=== PATIENT | male | born 1975 | race American Indian/Alaskan Native ===

== ENCOUNTER 2017-02-16 18:51 | Observation (INO) | payer OTHER ==
[2017-02-16 18:53] VITALS: BMI 31.1
--- NOTE | 2017-02-16 20:37 | ED PDOC ---
HPI:STROKE - Time Time: 19:30 - Historian Historian: Patient - Chief Complaint Chief Complaint: Confusion - Notes: Notes:: Harshal Hammond is a 41 year old male, with a previous medical history of strokes , brain tumor, hypercholesterolemia, diabetes and hypertension, who presents to the ED with complaints of intermittent states of confusion associated with a mild headache, blurred vision, blanking out and difficulty finding words ongoing for the past 2 weeks. Patient reports today's episode lasting longer which prompted ED visit. Patient denies any head trauma, falls or focal weakness. PMD: Dr. Judd NIHSS Stroke Scale - Date/Time Evaluation Performed Date Performed: 02/16/17 Time Performed: 19:30 When Was NIHSS Performed: Baseline - How Severe is the Stroke Level of Consciousness: 0=Alert LOC to Questions: 0=Both comments correct LOC to commands: 0=Obeys both correctly Best Gaze: 0=Normal Visual: 0=No visual loss Facial: 0=Normal Motor Arm - Left: 0=No drift Motor Arm - Right: 0=No drift Motor Leg - Left: 0=No drift Motor Leg - Right: 0=No drift Limb Ataxia: 0=Absent Sensory: 0=Normal Best Language: 0=No aphasia Dysarthia: 0=Normal articulation Extinction & Inattention (Neglect): 0=Normal, no object Score: 0 rTPA Inclusion/Exclusion - Refusal of Treatment Patient Refused Treatment: No - Inclusion Criteria for Altepase Patient is 18 years or Older: Yes The Clinical Diagnosis of Ischemic Stroke That is Causing a Potentially Disabling Neurological Deficit: No Time of Onset is Well Established to be Less Than 270 Minute Before Treatment Would Begin: No Risk/Benefit Discussed With Patient/Family Member Present: No Past Medical History Reviewed: Historical Data, Nursing Documentation, Vital Signs Vital Signs: Last Vital Signs Temp 97.9 F 02/16/17 19:01 Pulse 110 H 02/16/17 19:01 Resp 18 02/16/17 19:01 BP 139/86 02/16/17 19:01 Pulse Ox 99 02/16/17 19:01 - Medical History PMH: Asthma, Diabetes, HTN, Hypercholesterolemia Denies: HIV, Chronic Kidney Disease - Surgical History Other surgeries: craniectomy - Family History Family History: States: St[place], [place] - Home Medications Home Medications: Ambulatory Orders Medication Instructions Recorded Glimepiride [amaRYL] 2 mg PO DAILY 02/27/15 Metformin Hydrochloride [Metformin] 500 mg PO TID 02/27/15 Aspirin [Aspirin Chewable] 81 mg PO DAILY #0 chew 03/03/15 Atorvastatin [Lipitor] 20 mg PO DAILY #0 tab 03/03/15 Lisinopril [Zestril] 20 mg PO DAILY #0 tab 03/03/15 - Allergies Allergies/Adverse Reactions: Allergies Allergy/AdvReac Type Severity Reaction Status Date / Time No Known Allergies Allergy Verified 02/16/17 19:01 Review of Systems ROS Statement: Except As Marked, All Systems Reviewed And Found Negative Eyes: Positive for: Vision Change (blurred ) Neurological: Positive for: Confusion, Headache. Negative for: Weakness Physical Exam - Reviewed Nursing Documentation Reviewed: Yes Vital Signs Reviewed: Yes - Physical Exam Appears: Positive for: Well, Non-toxic, No Acute Distress Head Exam: Positive for: ATRAUMATIC, NORMAL INSPECTION, NORMOCEPHALIC Skin: Positive for: Normal Color, Warm, Dry Eye Exam: Positive for: EOMI, Normal appearance, PERRL ENT: Positive for: Normal ENT Inspection Neck: Positive for: Normal, Painless ROM Cardiovascular/Chest: Positive for: Regular Rate, Rhythm Respiratory: Positive for: CNT, Normal Breath Sounds Gastrointestinal/Abdominal: Positive for: Normal Exam, Bowel Sounds, Soft Back: Positive for: Normal Inspection Extremity: Positive for: Normal ROM Neurologic/Psych: Positive for: Alert, net application architect II-XII (intact ), Oriented, Cerebellar Tests (normal ). Negative for: Motor/Sensory Deficits - Laboratory Results Result Diagrams: 02/17/17 05:30 02/17/17 05:30 - ECG ECG: Positive for: Interpreted By Me ECG Rhythm: Positive for: Normal ST Segment, Sinus Rhythm, Sinus Tachycardia O2 Sat by Pulse Oximetry: 99 (RA) Pulse Ox Interpretation: Normal Medical Decision Making Medical Decision Making: Initial Impression: episodic Altered Mental Status. differentials include TIA, CVA, electrolyte abnormality, dehydration and metabolic encephalopathy Initial Plan: * blood type and screen * CT head w/o contrast * EKG * labs * alcohol serum * ammonia * urine drug screen * magnesium * phosphorous * Troponin I * partial thromboplastin time * prothrombin time * CXR * accu-check * reevaluation Reviewed previous chart from 02/2015. Pt had very similar presentation and MRI at that time demonstrated acute infarct, tiny microhemorrhages, encephalomalacia. EXAM: CT Head Without Intravenous Contrast CLINICAL HISTORY: 41 years old, male; Pain; Headache; Other: Stanford's weakness blurred vision; Prior surgery; Surgery date: 6+ months; Surgery type: Brain tumor removal 1995; Patient HX: Prior mri CT brain sent; Additional info: Confusion h/o CVA h/o tumor TECHNIQUE: Axial computed tomography images of the head/brain without intravenous contrast. This CT exam was performed using one or more of the following dose reduction techniques: automated exposure control, adjustment of the mA and/or kV according to patient size, and/or use of iterative reconstruction technique. Coronal and sagittal reformatted images were created and reviewed. COMPARISON: CT - HEAD W/O CONTRAST 02/27/2015 10:09:12 PM FINDINGS: Brain: Mild atrophy. No intracranial hemorrhage. Mild encephalomalacia within LEFT occipital parietal region. Mild encephalomalacia within RIGHT cerebellar hemisphere. No mass. No definite edema. Ventricles: No hydrocephalus. Bones/joints: No acute fracture. RIGHT occipital craniectomy. [place] hole. Soft tissues: Unremarkable. Sinuses: Scattered mild mucosal thickening. Mastoid air cells: No mastoid effusion. Orbits: Unremarkable as visualized. IMPRESSION: 1. No definite acute intracranial abnormality. Acute infarction may be CT occult within first 24 hours. If a focal deficit persists, consider followup CT or MRI for further evaluation. 2. Incidental/non-acute findings are described above. Thank you for allowing us to participate in the care of your patient. Dictated and Authenticated by: Roberto Najera MD 02/16/2017 11:10 PM Eastern Time ([place] & [place]) Scribe Attestation: Documented by Sasha Borja, acting as a scribe for Ирина Gonzales MD. Provider Scribe Attestation: All medical record entries made by the Scribe were at my direction and personally dictated by me. I have reviewed the chart and agree that the record accurately reflects my personal performance of the history, physical exam, medical decision making, and the department course for this patient. I have also personally directed, reviewed, and agree with the discharge instructions and disposition. Disposition - Clinical Impression Clinical Impression: Altered awareness, transient Discussed With : William Francis Doctor Will See Patient In The: ED Counseled Patient/Family Regarding: Studies Performed, Diagnosis - Disposition Disposition Time: 20:00 Condition: GUARDED - Pt Status Changed To: Hospital Disposition Of: Inpatient - Admit Certification Admit to Inpatient:: After my assessment, the patient will require hospitalization for at least two midnights. This is because of the severity of symptoms shown, intensity of services needed, and/or the medical risk in this patient being treated as an outpatient. - POA Present On Arrival: None
[2017-02-16 20:40] LABS: BASO # 0.1 K/uL (0.0-0.2); BASO % 0.7 % (0.0-2.0); EOS # 0.2 K/uL (0.0-0.7); EOS % 2.1 % (0.0-4.0); HEMATOCRIT 41.7 % (35.0-51.0); LYMPH # 1.6 K/uL (1.0-4.3); LYMPH % 18.8 % (20.0-40.0); MEAN CELL VOLUME 89.1 fl (80.0-94.0); MEAN CORPUSCULAR HEMOGLOBIN 28.7 pg (27.0-31.0); MEAN CORPUSCULAR HGB CONC 32.2 g/dL (33.0-37.0); MEAN PLATELET VOLUME 9.2 fl (7.2-11.7); MONO # 0.4 K/uL (0.0-0.8); MONO % 4.5 % (0.0-10.0); NEUT # 6.2 K/uL (1.8-7.0); NEUT % 73.9 % (50.0-75.0); RED CELL DISTRIBUTION WIDTH 15.2 % (11.5-14.5); WHITE BLOOD COUNT 8.3 K/uL (4.8-10.8)
[2017-02-16 20:44] LABS: ALB/GLOB RATIO 1.3 (1.0-2.1); ALCOHOL SERUM < 10 mg/dl (0-10); ALKALINE PHOSPHATASE 57 U/L (38-126); ALT/SGPT 28 U/L (21-72); AST/SGOT 17 U/L (17-59); BILIRUBIN,TOTAL 0.7 mg/dl (0.2-1.3); BLOOD UREA NITROGEN 13 mg/dl (9-20); CALCIUM 9.8 mg/dL (8.4-10.2); CARBON DIOXIDE 28 mmol/L (22-30); CHLORIDE 103 mmol/L (98-107); GFR AFRICAN-AMERICAN > 60; GLUCOSE,RANDOM 82 mg/dL (75-110); MAGNESIUM 1.9 MG/DL (1.6-2.3); POTASSIUM 4.8 MMOL/L (3.6-5.0); SODIUM 140 mmol/l (132-148); TOTAL PROTEIN 7.7 G/DL (6.3-8.2)
[2017-02-16 20:57] LABS: PARTIAL THROMBOPLASTIN TIME 26.6 Seconds (25.6-37.1)
[2017-02-16 21:56] LABS: RBC URINE 4 /hpf (0-3); URINE BACTERIA FEW (<OCC); URINE BILIRUBIN NEGATIVE (NEGATIVE); URINE BLOOD NEGATIVE (NEGATIVE); URINE COLOR YELLOW (YELLOW); URINE GLUCOSE (UA) 150 mg/dL (Normal); URINE KETONE NEGATIVE (NEGATIVE); URINE LEUKOCYTE ESTERASE NEG Leu/uL (Negative); URINE PROTEIN NEGATIVE (NEGATIVE); WBC URINE 1 /hpf (0-5)
--- NOTE | 2017-02-16 23:10 | CT ---
EXAM: CT Head Without Intravenous Contrast CLINICAL HISTORY: 41 years old, male; Pain; Headache; Other: Stanford's weakness blurred vision; Prior surgery; Surgery date: 6+ months; Surgery type: Brain tumor removal 1995; Patient HX: Prior mri CT brain sent; Additional info: Confusion h/o CVA h/o tumor TECHNIQUE: Axial computed tomography images of the head/brain without intravenous contrast. This CT exam was performed using one or more of the following dose reduction techniques: automated exposure control, adjustment of the mA and/or kV according to patient size, and/or use of iterative reconstruction technique. Coronal and sagittal reformatted images were created and reviewed. COMPARISON: CT - HEAD W/O CONTRAST 02/27/2015 10:09:12 PM FINDINGS: Brain: Mild atrophy. No intracranial hemorrhage. Mild encephalomalacia within LEFT occipital parietal region. Mild encephalomalacia within RIGHT cerebellar hemisphere. No mass. No definite edema. Ventricles: No hydrocephalus. Bones/joints: No acute fracture. RIGHT occipital craniectomy. [place] hole. Soft tissues: Unremarkable. Sinuses: Scattered mild mucosal thickening. Mastoid air cells: No mastoid effusion. Orbits: Unremarkable as visualized. IMPRESSION: 1. No definite acute intracranial abnormality. Acute infarction may be CT occult within first 24 hours. If a focal deficit persists, consider followup CT or MRI for further evaluation. 2. Incidental/non-acute findings are described above.
--- NOTE | 2017-02-16 23:32 | CP.PCM.HP ---
History of Present Illness - History of Present Illness History of Present Illness: CC: TIA symptoms -- speech, confusion HPI: This is a 41 y/o male with MHx significant for HTN, DM2, HLD and prior CVA who comes in with c/o speech difficulty and confusion. He states he was watching TV about 6 PM and vision got blurry. He went to lay down. His mother called to him to wake him up and upon getting up he did not recognize her for a few minutes. He also noted some stuttering when attempting to speak. The mother called 911 and they brought him here. Here he had no symptoms. He denies any CP , SOB. Denies f/c/n/v/d. Denies focal weakness. Denies current visual difficulty. Stated that when he previously had CVA, it presented like this. ROS: 14 systems reviewed, negative other than HPI MHx: HTN, DM2, HLD, prior history of ?brain tumor requiring treatment ~20 years ago SHx: some type of procedure for brain tumor Allergies: NKDA Medications: As per med rec Family Hx: F- CVA, GM- CVA, M- CVA Social Hx: Lives with family, no tobacco, no EtOH Present on Admission - Present on Admission Any Indicators Present on Admission: No Past Patient History - Past Medical History & Family History Past Medical History?: Yes - Past Social History Smoking Status: Never Smoked - CARDIAC Hx Hypercholesterolemia: Yes Hx Hypertension: Yes - PULMONARY Hx Asthma: Yes - NEUROLOGICAL Hx Neurological Disorder: No - HEENT Hx HEENT Problems: No - RENAL Hx Chronic Kidney Disease: No - ENDOCRINE/METABOLIC Hx Endocrine Disorders: Yes Hx Diabetes Mellitus Type 2: Yes - HEMATOLOGICAL/ONCOLOGICAL Hx Human Immunodeficiency Virus (HIV): No - INTEGUMENTARY Hx Dermatological Problems: No - MUSCULOSKELETAL/RHEUMATOLOGICAL Hx Musculoskeletal Disorders: No Hx Falls: No - GASTROINTESTINAL Hx Gastrointestinal Disorders: No - GENITOURINARY/GYNECOLOGICAL Hx Genitourinary Disorders: No - PSYCHIATRIC Hx Psychophysiologic Disorder: No Hx Substance Use: No - SURGICAL HISTORY Hx Surgeries: Yes Other/Comment: brain tumor removed- malignant-1996 - ANESTHESIA Hx Anesthesia: Yes Hx Anesthesia Reactions: No Hx Malignant Hyperthermia: No Meds Allergies/Adverse Reactions: Allergies Allergy/AdvReac Type Severity Reaction Status Date / Time No Known Allergies Allergy Verified 02/16/17 19:01 Physical Exam - Constitutional Appears: No Acute Distress - Head Exam Head Exam: ATRAUMATIC, NORMOCEPHALIC - Eye Exam Eye Exam: EOMI, PERRL - ENT Exam ENT Exam: Mucous Membranes Moist - Neck Exam Neck exam: Positive for: Full Rom - Respiratory Exam Respiratory Exam: Clear to Auscultation Bilateral, NORMAL BREATHING PATTERN - Cardiovascular Exam Cardiovascular Exam: REGULAR RHYTHM, +S1, +S2 - GI/Abdominal Exam GI & Abdominal Exam: Normal Bowel Sounds, Soft - Extremities Exam Extremities exam: Positive for: full ROM, normal inspection - Neurological Exam Neurological exam: Alert, CN II-XII Intact, Oriented x3 Additional comments: no focal weakness - Psychiatric Exam Psychiatric exam: Normal Affect, Normal Mood - Skin Skin Exam: Dry, Warm Results - Vital Signs Recent Vital Signs: Last Vital Signs Temp 97.9 F 02/16/17 19:01 Pulse 110 H 02/16/17 19:01 Resp 18 02/16/17 19:01 BP 139/86 02/16/17 19:01 Pulse Ox 99 02/16/17 23:25 - Labs Result Diagrams: 02/16/17 20:29 02/16/17 20:29 Labs: Laboratory Results - last 24 hr 02/16/17 02/16/17 02/16/17 20:29 20:29 20:29 WBC 8.3 D RBC 4.68 Hgb 13.4 Hct 41.7 MCV 89.1 MCH 28.7 MCHC 32.2 L RDW 15.2 H Plt Count 220 MPV 9.2 Neut % (Auto) 73.9 Lymph % (Auto) 18.8 L Hunt % (Auto) 4.5 Eos % (Auto) 2.1 Baso % (Auto) 0.7 Neut # 6.2 Lymph # 1.6 Hunt # 0.4 Eos # 0.2 Baso # 0.1 PT INR APTT Sodium 140 Potassium 4.8 Chloride 103 Carbon Dioxide 28 Anion Gap 15 BUN 13 Creatinine 1.2 Est GFR ( Amer) > 60 Est GFR (Non-Af Amer) > 60 Random Glucose 82 Calcium 9.8 Phosphorus 4.0 Magnesium 1.9 Total Bilirubin 0.7 AST 17 D ALT 28 Alkaline Phosphatase 57 Ammonia 10 L Troponin I < 0.0120 Total Protein 7.7 Albumin 4.4 Globulin 3.3 Albumin/Globulin Ratio 1.3 Urine Color Urine Clarity Urine pH Ur Specific [place] Urine Protein Urine Glucose (UA) Urine Ketones Urine Blood Urine Nitrate Urine Bilirubin Urine Urobilinogen Ur Leukocyte Esterase Urine RBC (Auto) Urine Microscopic WBC Urine Bacteria Hyaline Casts Urine Sperm (Auto) Urine Opiates Screen Urine Methadone Screen Ur Barbiturates Screen Ur Phencyclidine Scrn Ur Amphetamines Screen U Benzodiazepines Scrn U Oth Cocaine Metabols U Cannabinoids Screen Alcohol, Quantitative < 10 Blood Type Antibody Screen BBK History Checked 02/16/17 02/16/17 02/16/17 20:29 21:20 21:20 WBC RBC Hgb Hct MCV MCH MCHC RDW Plt Count MPV Neut % (Auto) Lymph % (Auto) Hunt % (Auto) Eos % (Auto) Baso % (Auto) Neut # Lymph # Hunt # Eos # Baso # PT 11.7 INR 1.0 APTT 26.6 Sodium Potassium Chloride Carbon Dioxide Anion Gap BUN Creatinine Est GFR ( Amer) Est GFR (Non-Af Amer) Random Glucose Calcium Phosphorus Magnesium Total Bilirubin AST ALT Alkaline Phosphatase Ammonia Troponin I Total Protein Albumin Globulin Albumin/Globulin Ratio Urine Color Yellow Urine Clarity Clear Urine pH 5.0 Ur Specific [place] 1.018 Urine Protein Negative Urine Glucose (UA) 150 Urine Ketones Negative Urine Blood Negative Urine Nitrate Negative Urine Bilirubin Negative Urine Urobilinogen 4.0 Ur Leukocyte Esterase Neg Urine RBC (Auto) 4 H Urine Microscopic WBC 1 Urine Bacteria Few H Hyaline Casts 3-5 H Urine Sperm (Auto) Occ Urine Opiates Screen Negative Urine Methadone Screen Negative Ur Barbiturates Screen Negative Ur Phencyclidine Scrn Negative Ur Amphetamines Screen Negative U Benzodiazepines Scrn Negative U Oth Cocaine Metabols Negative U Cannabinoids Screen Negative Alcohol, Quantitative Blood Type Antibody Screen BBK History Checked 02/16/17 22:28 WBC RBC Hgb Hct MCV MCH MCHC RDW Plt Count MPV Neut % (Auto) Lymph % (Auto) Hunt % (Auto) Eos % (Auto) Baso % (Auto) Neut # Lymph # Hunt # Eos # Baso # PT INR APTT Sodium Potassium Chloride Carbon Dioxide Anion Gap BUN Creatinine Est GFR ( Amer) Est GFR (Non-Af Amer) Random Glucose Calcium Phosphorus Magnesium Total Bilirubin AST ALT Alkaline Phosphatase Ammonia Troponin I Total Protein Albumin Globulin Albumin/Globulin Ratio Urine Color Urine Clarity Urine pH Ur Specific [place] Urine Protein Urine Glucose (UA) Urine Ketones Urine Blood Urine Nitrate Urine Bilirubin Urine Urobilinogen Ur Leukocyte Esterase Urine RBC (Auto) Urine Microscopic WBC Urine Bacteria Hyaline Casts Urine Sperm (Auto) Urine Opiates Screen Urine Methadone Screen Ur Barbiturates Screen Ur Phencyclidine Scrn Ur Amphetamines Screen U Benzodiazepines Scrn U Oth Cocaine Metabols U Cannabinoids Screen Alcohol, Quantitative Blood Type B POSITIVE Antibody Screen Negative BBK History Checked No verified bt - EKG Data EKG Interpreted by: Myself EKG shows normal: Sinus rhythm Rate: Normal - Imaging and Cardiology Chest x-ray Status: Image reviewed by me (Poor inspiration; no acute findings) CT scan - head Status: Image reviewed by me (No acute findings), Report reviewed by me Assessment & Plan (1) TIA (transient ischemic attack) Assessment and Plan: 41 y/o male with HTN, HLD, DM2 with prior history of CVA who comes in with TIA symptoms now. 1) CVA/TIA, HLD, HTN -Admit tele -serial troponins -AM EKG -Echo and carotid dopplers in AM -Neuro consult in AM -- Afl; defer MRI orders to neuro -Cont ASA 81, Lipitor 40 -Monitor BP, cont home BP medications 2) DM2 -accuchecks, SSI -DM2 diet -Continue home PO hypoglycemics 3) DVT PPx -- SQ Lovenox Status: Acute (2) HLD (hyperlipidemia) Status: Acute (3) DVT prophylaxis Status: Acute (4) DMII (diabetes mellitus, type 2) Status: Chronic Priority: High (5) HTN (hypertension) Status: Chronic Priority: Medium
[2017-02-17] MEDS ORDERED: Labetalol 5 mg/ml Inj 20ML IVP PRN (00:38)
[2017-02-17 04:42] VITALS: RESP 18
[2017-02-17] MEDS: Insulin Lispro (humaLOG) 100 Units/ml Inj SC SCH ×3 (06:56→17:09)
[2017-02-17 07:34] LABS: HEMATOCRIT 39.8 % (35.0-51.0); MEAN CELL VOLUME 89.4 fl (80.0-94.0); MEAN CORPUSCULAR HEMOGLOBIN 28.9 pg (27.0-31.0); MEAN CORPUSCULAR HGB CONC 32.3 g/dL (33.0-37.0); RED CELL DISTRIBUTION WIDTH 15.4 % (11.5-14.5); WHITE BLOOD COUNT 6.1 K/uL (4.8-10.8)
[2017-02-17 07:49] LABS: BLOOD UREA NITROGEN 16 mg/dl (9-20); CALCIUM 9.3 mg/dL (8.4-10.2); CARBON DIOXIDE 27 mmol/L (22-30); CHLORIDE 102 mmol/L (98-107); GFR AFRICAN-AMERICAN > 60; GLUCOSE,RANDOM 107 mg/dL (75-110); POTASSIUM 3.7 MMOL/L (3.6-5.0); SODIUM 139 mmol/l (132-148)
[2017-02-17] MEDS ORDERED: GlipiZIDE 5 mg SR Tab PO SCH (08:00)
[2017-02-17] MEDS ORDERED: Enoxaparin 40 mg Syringe SC SCH (09:00)
[2017-02-17] MEDS ORDERED: GLIMEPIRIDE 2 MG PO SCH (09:00)
[2017-02-17] MEDS ORDERED: METFORMIN HYDROCHLORIDE 500 MG PO SCH (09:00)
--- NOTE | 2017-02-17 10:26 | RAD ---
HISTORY: ams COMPARISON: No prior. FINDINGS: LUNGS: No active pulmonary disease. PLEURA: No significant pleural effusion identified, no pneumothorax apparent. CARDIOVASCULAR: Normal. OSSEOUS STRUCTURES: No significant abnormalities. VISUALIZED UPPER ABDOMEN: Normal. OTHER FINDINGS: None. IMPRESSION: No active disease.
[2017-02-17 10:47] LABS: CHOLESTEROL 153 mg/dL (0-199)
--- NOTE | 2017-02-17 12:15 | CON ---
DATE: 02/17/2017 CHIEF COMPLAINT: Confusion and slurred speech. HISTORY OF PRESENTING ILLNESS: This is a 41-year-old man with history of hypertension, type 2 diabet es mellitus, hyperlipidemia, history of a left temporoparietal CVA in 02/2015, history of encephalomal acia left cerebral hemisphere indicating from prior resection of a mass in the past, who presented to the hospital because he had transient difficulty in , difficulty getting out his words an d with some mild confusion. Currently, he is clinically stable. His symptoms had resolved. He had slightly elevated systolic and diastolic blood pressures. He has not been taking aspirin at all segundo y. His mother sees Dr. Daniels, who is also a neurologist and would like to follow up with Dr. Daniels as an outpatient. His LDL is 93 and his triglycerides are 103 and cholesterol is 153. He has slight re sidual slow right finger tapping from prior left temporoparietal CVA. No acute events overnight. PAST MEDICAL HISTORY: Hypertension, dyslipidemia, hyperlipidemia, history of left cerebellar resecti on from a prior mass more than 20 years ago. SOCIAL HISTORY: No illicit drug use, smoking, or ETOH abuse. ALLERGIES: No known drug allergies. FAMILY HISTORY: Father had CVA and mother had a CVA in the past. REVIEW OF SYSTEMS: A 14-point negative except for in the HPI. PHYSICAL EXAMINATION: VITAL SIGNS: Temperature 97.9, pulse rate of 96, blood pressure 146/97, respiratory rate of 18, oxyg en saturation 98% via room air. GENERAL: The patient is sitting up in bed, in no acute distress. HEENT: Atraumatic, normocephalic. PERRLA. Extraocular muscles intact. NECK: Supple, no JVD, no adenopathy noted. LUNGS: Clear to auscultation. No adventitious sounds. HEART: S1, S2, normal rate and rhythm. No murmurs, rubs, or gallops. ABDOMEN: Soft, nontender, nondistended. Bowel sounds are present. EXTREMITIES: No clubbing, no cyanosis. Peripheral pulses 2+ felt bilaterally. NEUROLOGIC: The patient is alert, oriented to person, place, month and year. Speech is fluent, with out any errors. Cranial nerves II-XII are intact. MOTOR: Normal tone, normal bulk of muscle. Moves all extremities equally. No pronator drift seen. Has slight residual right side finger tapping compared to the left from prior CVA. DTRs are 2 + throughout. SENSORY: Light touch, pinprick, proprioception, and vibration intact. GAIT: Slightly wide based, but otherwise normal. Romberg negative. LABORATORIES: Sodium 139, potassium , chloride 102, carbon dioxide 27, BUN 16, creatinine 1.1. Random glucose of 107. ASSESSMENT AND PLAN: This is a 41-year-old man with past medical history of type 2 diabetes mellitus , hyperlipidemia, history of a left temporoparietal cerebrovascular accident in the past in 02/2015 wi th minimal residual deficits, has slow right finger tapping compared to the left, history of resectio n of a brain tumor more than 20 years ago in the left cerebral hemisphere, who presents with transien t confusion as well as some transient slurred speech. At this time, he is asymptomatic. He had slig htly elevated systolic and diastolic blood pressures, which is currently being controlled. At this t raymond, recommend: 1. Him to be on aspirin 81 mg since he was not taking it daily and Lipitor 40 mg for dyslipidemia an d stroke prevention. 2. Keep his blood pressure between 120-130 mmHg. Advised low fat diet and low salt diet. 3. Get an MRI of the brain without contrast to assess for any acute infarct. If negative, patient c an be discharged home and follow up with neurologist, Dr. Daniels, as an outpatient. He is clinically s table from my standpoint. Thank you for this consult. Bc Guadalupe MD cc: [id number] TT: 02/17/2017 12:14:38 Confirmation # [id number] Dictation # [id number] en
--- NOTE | 2017-02-17 14:05 | CARD ---
APPROVED REPORT EKG Measurement Heart [id number] <Conclusion> Sinus tachycardia Possible Inferior infarct, age undetermined Abnormal ECG
--- NOTE | 2017-02-17 14:16 | US ---
PROCEDURE: Duplex ultrasound of the carotid and vertebral arteries. HISTORY: tia COMPARISON: 03/01/2015. TECHNIQUE: Grayscale and duplex Doppler evaluation of the cervical carotid and vertebral arteries were performed. The common carotid, carotid bifurcations and cervical ICA and proximal ECA were evaluated. The vertebral arteries were evaluated for gross patency and direction. FINDINGS: RIGHT CAROTID ARTERIES: Common Carotid Artery: Heterogeneous plaque formation. Maximal flow velocity of 72.4 cm/s. Carotid Bifurcation: Normal. Internal Carotid Artery:Tortuous right ICA Maximal flow velocity of 51.5 cm/s. External Carotid Artery (proximal branches): Normal. Maximal flow velocity of 65 cm/s. ICA/CCA Ratio: 0.8 LEFT CAROTID ARTERIES: Common Carotid Artery: Heterogeneous plaque formation. Maximal flow velocity of 124 cm/s. Carotid Bifurcation: Heterogeneous plaque formation. Internal Carotid Artery:Heterogeneous plaque formation. Maximal flow velocity of 38.6 cm/s. External Carotid Artery (proximal branches): Normal. Maximal flow velocity of 98.5 cm/s. ICA/CCA Ratio: 0.3 VERTEBRAL ARTERIES: Right Vertebral Artery: Patent. Antegrade flow. Left Vertebral Artery: Patent. Antegrade flow. OTHER FINDINGS: Incompletely visualized right thyroid nodule. Elective ultrasound advised IMPRESSION: Right ICA degree of stenosis: Less than 50% Left ICA degree of stenosis: Less than 50% No significant interval change compared to the prior examination(s). Reference Internal Carotid Artery (ICA) Peak Systolic Velocity (PSV) for above: 1. Less than 50% stenosis less than 125 cm/s peak systolic velocity 2. 50-69% stenosis 125-230cm/s peak systolic velocity 3. Greater than 70% but less than near occlusion greater than 230 cm/s peak systolic velocity
--- NOTE | 2017-02-17 15:24 | EEG ---
DATE: 02/17/2017 CONDITION OF RECORDING: Awake. DIAGNOSIS: Evaluation for seizure. MEDICATIONS: Reviewed via nurse's reconciliation sheet. INTERPRETATION: This is a 16-channel international recording. The background activity of this tricia ng was composed of 8-1/2 cycles per second. There was a small amount of beta activity 16-20 cycles p er second seen in this recording and a small amount of theta activity 5-7 cycles per second seen in t his recording. Drowsiness was characterized by mixed beta and theta activities. Sleep was character ized by sleep spindles, vertex transient waves and bilateral slowing. Photic stimulation showed no c hange in the tracing. No paroxysmal activity noted in this recording. CONCLUSION: Normal awake electroencephalogram. No evidence of any epileptiform activity. Please cl inically correlate. Bc Guadalupe MD cc: [id number] TT: 02/17/2017 15:24:11 Confirmation # [id number] Dictation # [id number] en
[2017-02-17 15:50] VITALS: BP 130/80; PULSE 107; TEMP 98; O2SAT 98
--- NOTE | 2017-02-17 16:18 | CP.PCM.DIS ---
Provider - Provider Date of Admission: 02/16/17 23:25 Attending physician: William Francis MD Consults: Neurology consult Time Spent in preparation of Discharge (in minutes): 20 Hospital Course - Lab Results Lab Results: Most Recent Lab Values WBC 6.1 K/uL (4.8-10.8) 02/17/17 05:30 RBC 4.46 Mil/uL (4.40-5.90) 02/17/17 05:30 Hgb 12.9 g/dL (12.0-18.0) 02/17/17 05:30 Hct 39.8 % (35.0-51.0) 02/17/17 05:30 MCV 89.4 fl (80.0-94.0) 02/17/17 05:30 MCH 28.9 pg (27.0-31.0) 02/17/17 05:30 MCHC 32.3 g/dL (33.0-37.0) L 02/17/17 05:30 RDW 15.4 % (11.5-14.5) H 02/17/17 05:30 Plt Count 206 K/uL (130-400) 02/17/17 05:30 MPV 9.2 fl (7.2-11.7) 02/16/17 20:29 Neut % (Auto) 73.9 % (50.0-75.0) 02/16/17 20:29 Lymph % (Auto) 18.8 % (20.0-40.0) L 02/16/17 20:29 [place] % (Auto) 4.5 % (0.0-10.0) 02/16/17 20:29 Eos % (Auto) 2.1 % (0.0-4.0) 02/16/17 20:29 Baso % (Auto) 0.7 % (0.0-2.0) 02/16/17 20: Neut # 6.2 K/uL (1.8-7.0) 02/16/17 20:29 Lymph # 1.6 K/uL (1.0-4.3) 02/16/17 20:29 [place] # 0.4 K/uL (0.0-0.8) 02/16/17 20:29 Eos # 0.2 K/uL (0.0-0.7) 02/16/17 20:29 Baso # 0.1 K/uL (0.0-0.2) 02/16/17 20:29 PT 11.7 Seconds (9.8-13.1) 02/16/17 20:29 INR 1.0 (0.9-1.2) 02/16/17 20:29 APTT 26.6 Seconds (25.6-37.1) 02/16/17 20:29 Sodium 139 mmol/l (132-148) 02/17/17 05:30 Potassium 3.7 MMOL/L (3.6-5.0) 02/17/17 05:30 Chloride 102 mmol/L (98-107) 02/17/17 05:30 Carbon Dioxide 27 mmol/L (22-30) 02/17/17 05:30 Anion Gap 14 (10-20) 02/17/17 05:30 BUN 16 mg/dl (9-20) 02/17/17 05:30 Creatinine 1.1 mg/dL (0.8-1.5) 02/17/17 05:30 Est GFR ( Amer) > 60 02/17/17 05:30 Est GFR (Non-Af Amer) > 60 02/17/17 05:30 POC Glucose (mg/dL) 249 mg/dL (65-110) H 02/17/17 11:16 Random Glucose 107 mg/dL (75-110) 02/17/17 05:30 Calcium 9.3 mg/dL (8.4-10.2) 02/17/17 05:30 Phosphorus 4.0 mg/dl (2.5-4.5) 02/16/17 20:29 Magnesium 1.9 MG/DL (1.6-2.3) 02/16/17 20:29 Total Bilirubin 0.7 mg/dl (0.2-1.3) 02/16/17 20:29 AST 17 U/L (17-59) D 02/16/17 20:29 ALT 28 U/L (21-72) 02/16/17 20:29 Alkaline Phosphatase 57 U/L (38-126) 02/16/17 20:29 Ammonia 10 umo/L (16-60) L 02/16/17 20:29 Troponin I < 0.0120 ng/mL (0.00-0.120) 02/17/17 05:30 Total Protein 7.7 G/DL (6.3-8.2) 02/16/17 20:29 Albumin 4.4 g/dL (3.5-5.0) 02/16/17 20:29 Globulin 3.3 gm/dL (2.2-3.9) 02/16/17 20:29 Albumin/Globulin Ratio 1.3 (1.0-2.1) 02/16/17 20:29 Triglycerides 103 mg/DL (0-149) D 02/17/17 05:30 Cholesterol 153 mg/dL (0-199) 02/17/17 05:30 LDL Cholesterol Direct 93 mg/dL (0-129) 02/17/17 05:30 HDL Cholesterol 40 MG/DL (30-70) 02/17/17 05:30 Urine Color Yellow (YELLOW) 02/16/17 21:20 Urine Clarity Clear (Clear) 02/16/17 21:20 Urine pH 5.0 (5.0-8.0) 02/16/17 21:20 Ur Specific [place] 1.018 (1.003-1.030) 02/16/17 21:20 Urine Protein Negative mg/dL (NEGATIVE) 02/16/17 21:20 Urine Glucose (UA) 150 mg/dL (Normal) 02/16/17 21:20 Urine Ketones Negative mg/dL (NEGATIVE) 02/16/17 21:20 Urine Blood Negative (NEGATIVE) 02/16/17 21:20 Urine Nitrate Negative (NEGATIVE) 02/16/17 21:20 Urine Bilirubin Negative (NEGATIVE) 02/16/17 21:20 Urine Urobilinogen 4.0 mg/dL (0.2-1.0) 02/16/17 21:20 Ur Leukocyte Esterase Neg Joy/uL (Negative) 02/16/17 21:20 Urine RBC (Auto) 4 /hpf (0-3) H 02/16/17 21:20 Urine Microscopic WBC 1 /hpf (0-5) 02/16/17 21:20 Urine Bacteria Few (<OCC) H 02/16/17 21:20 Hyaline Casts 3-5 /hpf (0-2) H 02/16/17 21:20 Urine Sperm (Auto) Occ /hpf (NONE) 02/16/17 21:20 Urine Opiates Screen Negative (NEGATIVE) 02/16/17 21:20 Urine Methadone Screen Negative (NEGATIVE) 02/16/17 21:20 Ur Barbiturates Screen Negative (NEGATIVE) 02/16/17 21:20 Ur Phencyclidine Scrn Negative (NEGATIVE) 02/16/17 21:20 Ur Amphetamines Screen Negative (NEGATIVE) 02/16/17 21:20 U Benzodiazepines Scrn Negative (NEGATIVE) 02/16/17 21:20 U Oth Cocaine Metabols Negative (NEGATIVE) 02/16/17 21:20 U Cannabinoids Screen Negative (NEGATIVE) 02/16/17 21:20 Alcohol, Quantitative < 10 mg/dl (0-10) 02/16/17 20:29 Blood Type B POSITIVE 02/16/17 22:28 Blood Type Confirm B POSITIVE 02/16/17 23:10 Antibody Screen Negative 02/16/17 22:28 BBK History Checked No verified bt 02/16/17 22:28 - Hospital Course Hospital Course: 41 y/o male with MHx significant for HTN, DM2, HLD , history of brain tumor s/p craniotomy at age of 18, prior CVA came in with complaining of speech difficulty and confusion. He states he was watching TV about 6 PM and vision got blurry. He went to lay down. His mother called to him to wake him up and upon getting up he did not recognize her for a few minutes. He also noted some stuttering when attempting to speak. The mother called 911 and they brought him here. Here he had no symptoms. He denies any CP, SOB. Denies f/c/n/v/d. Denies focal weakness. Denies current visual difficulty. Stated that when he previously had CVA, it presented like this. CT head in [place] showed no acute pathology . Patient was placed under observation in telemetry with diagnosis of TIA/rule out CVA. Neurology was consulted.He was started on ASa, statin, BP meds and accuchecks. His neurological symptoms resolved with no sequela MRi head showed no acute stroke EEG showed no seizure like activity Discharge diagnosis-- TIA Will discharge patient vincent ju ASa 81 mg po QD, Lipitor 40 mg po daily, lisinopril and metformin Advise patient to follow up with his neurologist Dr. Daniels 1. TIA , CVA ruled out 2. Hypertension - controlled 3. DM type II 4.Dyslipidemia 5. History of brain tumor s/p craniotomy Discharge Exam - Head Exam Head Exam: ATRAUMATIC, NORMAL INSPECTION, NORMOCEPHALIC - Eye Exam Eye Exam: EOMI, Normal appearance, PERRL Pupil Exam: NORMAL ACCOMODATION - ENT Exam ENT Exam: Mucous Membranes Moist, Normal Exam - Neck Exam Neck exam: Full Rom, Normal Inspection - Respiratory Exam Respiratory Exam: Clear to PA & Lateral, NORMAL BREATHING PATTERN. absent: Rales, Rhonchi, Wheezes - Cardiovascular Exam Cardiovascular Exam: REGULAR RHYTHM, RRR, +S1, +S2. absent: JVD - GI/Abdominal Exam GI & Abdominal Exam: Normal Bowel Sounds, Soft. absent: Distended, Guarding, Rebound, Tenderness - Rectal Exam Rectal Exam: Deferred - Extremities Exam Extremities exam: normal capillary refill, normal inspection, pedal pulses present - Back Exam Back exam: NORMAL INSPECTION - Neurological Exam Neurological exam: Alert, CN II-XII Intact, Oriented x3, Reflexes Normal - Psychiatric Exam Psychiatric exam: Normal Affect, Normal Mood - Skin Skin Exam: Dry, Intact, Normal Color, Warm Discharge Plan - Discharge Medications Prescriptions: RX: Aspirin [Aspirin Chewable] 81 mg PO DAILY #30 chew RX: Atorvastatin [Lipitor] 20 mg PO DAILY #30 tab RX: Lisinopril [Zestril] 20 mg PO DAILY #30 tab - Follow Up Plan Condition: STABLE Disposition: HOME/ ROUTINE Patient education suggested?: Yes Instructions: Transient Ischemic Attack (DC) Referrals: Oral Daniels MD [Staff Provider] -
--- NOTE | 2017-02-17 16:47 | MRI ---
PROCEDURE: MRI BRAIN WITHOUT CONTRAST HISTORY: cva COMPARISON: Comparison is made to the previous MRI study dated 03/01/[address] of the brain dated 02/16/2017 TECHNIQUE: Multiplanar, multisequence MR images of the brain were obtained without intravenous contrast enhancement. FINDINGS: HEMORRHAGE: No evidence of acute intracranial hemorrhage. There are scattered small foci of hypointense T2 GRE a signal suggestive of bold foci of hemorrhage and blood product deposition versus calcification. DWI: No evidence of an acute or early subacute infarction. BRAIN PARENCHYMA: Moderate size encephalomalacia at the right cerebellum and left posterior parietal occipital lobe are noted suggestive of old infarct and/or both injury changes mild atrophy for the patient's age is noted. Mild chronic microvascular white matter ischemic disease is also noted. VENTRICLES: Unremarkable. No hydrocephalus. CRANIUM: Patient status post right occipital craniectomy. ORBITS: Grossly unremarkable. PARANASAL SINUSES/MASTOIDS: Mild mucosal thickening seen in the ethmoid and maxillary sinuses. VASCULAR SYSTEM: Skull base flow voids intact. OTHER FINDINGS: None. IMPRESSION: No evidence of acute infarct or acute intracranial pathology. Foci of encephalomalacia at the right cerebellum and posterior left parietal occipital lobes. Mild atrophy and chronic microvascular white matter ischemic disease.
--- NOTE | 2017-02-17 18:15 | CARD ---
APPROVED REPORT EXAM: Two-dimensional and M-mode echocardiogram with Doppler and color Doppler. Other Information Quality : [employer] : NSR INDICATION CVA/TIA 2D DIMENSIONS IVSd1.43 (0.7-1.1cm)LVDd3.76 (3.9-5.9cm) LVOT Diameter2.38 (1.8-2.4cm)PWd1.01 (0.7-1.1cm) IVSs1.79 (0.8-1.2cm)LVDs2.74 (2.5-4.0cm) FS (%) 27.2 %PWs1.22 (0.8-1.2cm) M-Mode DIMENSIONS Left Atrium (MM)3.84 (2.5-4.0cm)IVSd1.28 (0.7-1.1cm) Aortic Root3.75 (2.2-3.7cm)LVDd4.28 (4.0-5.6cm) Aortic Cusp Exc.2.84 (1.5-2.0cm)PWd1.41 (0.7-1.1cm) IVSs2.00 cmFS (%) 51 % LVDs2.09 (2.0-3.8cm)PWs1.72 cm Mitral Valve E/A ratio0.0 TDI E/Lateral E'0.0E/Medial E'0.0 Pulmonary Valve PV Peak Cugswzeg58.4cm/s LEFT VENTRICLE The left ventricle is normal size. There is borderline concentric left ventricular hypertrophy. The left ventricular function is normal. The left ventricular ejection fraction is - 60%. There is normal LV segmental wall motion. Transmitral Doppler flow pattern is abnormal. No left ventricle thrombus noted on this study. There is no ventricular septal defect visualized. There is no left ventricular aneurysm. There is no mass noted in the left ventricle. RIGHT VENTRICLE The right ventricle is normal size. There is normal right ventricular wall thickness. The right ventricular systolic function is normal. ATRIA The left atrium size is normal. The right atrium size is normal. The interatrial septum is intact with no evidence for an atrial septal defect. AORTIC VALVE The aortic valve is normal in structure and function. No aortic regurgitation is present. There is no aortic valvular stenosis. MITRAL VALVE The mitral valve is normal in structure and function. There is no evidence of mitral valve prolapse. There is no mitral valve stenosis. There is no mitral valve regurgitation noted. TRICUSPID VALVE The tricuspid valve is normal in structure and function. There is trace tricuspid regurgitation. There is no tricuspid valve prolapse or vegetation. There is no tricuspid valve stenosis. PULMONIC VALVE The pulmonary valve is normal in structure and function. There is no pulmonic valvular regurgitation. GREAT VESSELS The aortic root is normal in size. The IVC was not visualized. PERICARDIAL EFFUSION The pericardium appears normal. There is no pleural effusion. <Conclusion> The left ventricle is normal size. There is borderline to mild concentric left ventricular hypertrophy. The left ventricular function is normal. The left ventricular ejection fraction is - 60%. The left atrium, right ventricle and right atrium are normal in size. The mitral, aortic and tricuspid valves are normal. There is trace tricuspid regurgitation.
== END 2017-02-17 18:30 | disposition home or self-care (01) ==
LOC: H.ER 18:51 → INTOOBSV 23:25 → H.ERHOLD 23:25 → H.TEL 02-17 00:49
PROVIDERS: ADMIT Internal Medicine; ATTEND Internal Medicine
DX: G45.9 Transient cerebral ischemic attack, unspecified (principal); E11.9 Type 2 diabetes mellitus without complications; E78.00 Pure hypercholesterolemia, unspecified; E78.5 Hyperlipidemia, unspecified; I10 Essential (primary) hypertension; J45.909 Unspecified asthma, uncomplicated; Z86.73 Personal history of transient ischemic attack (TIA), and cerebral infarction without residual deficits